=== PATIENT | female | born 1995 | race Two or more races ===

== ENCOUNTER 2024-02-16 05:40 | Emergency (ER) | payer OTHER ==
[~2024-02-16] VITALS: Ht 160 cm; Wt 90.5 kg
[2024-02-16] MEDS: PANTOPRAZOLE 40 MG/10 ML VIAL INJ IV ONE (06:59)
[2024-02-16] MEDS: PROCHLORPERAZINE EDISYLATE 5 MG/ML 2ML VIAL IV ONE (06:59)
[2024-02-16] MEDS: SODIUM CHLORIDE 0.9% 1,000 ML IVB ONE (06:59)
[2024-02-16 07:03] VITALS: RESP 16; O2SAT 96
[2024-02-16 07:08] LABS: Eosinophils # (auto) 0.1 10 ^3/uL (0-0.8); Hemoglobin 14.2 g/dL (12.2-16.2); Lymphocytes # (auto) 2.7 10 ^3/uL (0.4-5.4); Neutrophils # (auto) 8.3 10 ^3/uL (1.6-8.6)
[2024-02-16 07:11] LABS: Basophils # (auto) 0 10 ^3/uL (0-0.2); Basophils % (auto) 0.4 % (0.0-2.0); Eosinophils % (auto) 0.7 % (0.0-7.0); Hematocrit 44.2 % (36.0-46.0); Mean Corpuscular Hemoglobin 20.8 pg (28.0-32.0); Monocytes # (auto) 0.5 10 ^3/uL (0-1.3); Monocytes % (auto) 4.5 % (0.0-12.0); Neutrophils % (auto) 71.4 % (37.0-80.0); Nucleated Red Blood Cells % 0.3 %; Platelet Count (auto) 227 10^3/uL (140-450); White Blood Cell 11.6 10^3/uL (4.4-10.8)
[2024-02-16 07:24] LABS: Alanine Aminotransferase 68 U/L (7-40); Albumin 5.5 g/dL (3.2-4.8); Alkaline Phosphatase 104 U/L (46-116); Anion Gap 12 (5-15); Aspartate Aminotransferase 31 U/L (13-40); BUN/Creatinine Ratio 8.3 (10.0-20.0); Bilirubin, Total 0.8 mg/dL (0.2-1.0); Blood Urea Nitrogen 7 mg/dL (9-23); Calcium 10.2 mg/dL (8.7-10.4); Carbon Dioxide 22 mmol/L (20-31); Chloride 107 mmol/L (98-107); Glucose 92 mg/dL (74-106); Potassium 3.7 mmol/L (3.5-5.1); Sodium 141 mmol/L (136-145); Total Protein 8.8 g/dL (5.7-8.2)
[2024-02-16 07:28] VITALS: BP 123/77; PULSE 77; RESP 16; TEMP 97.8; O2SAT 96
[2024-02-16] MEDS ORDERED: ZOFR4T PO (07:30)
[2024-02-16] MEDS ORDERED: PANT40TA2 PO (07:30)
[2024-02-16 07:36] LABS: Lipase 42 U/L (12-53)
== END 2024-02-16 07:45 | disposition home or self-care (01) ==
LOC: ER 05:40
DX: K29.00 Acute gastritis without bleeding (principal); F12.90 Cannabis use, unspecified, uncomplicated
CPT/HCPCS: 36415; 80053; 83690; 85025; 96361; 96374; 96375; 99284; J0780; J2470; J7030